=== PATIENT | female | born 1940 | race Caucasian/White ===

== ENCOUNTER 2022-08-04 14:52 | Emergency (ER) | payer OTHER ==
--- OUTSIDE RECORDS SUMMARY | 2022-08-04 14:54 | XMS REPORT | Continuity of Care Document ---
:1940 Author Organization [facility] t Address [address] [place] [address] Care Team Providers Name Role Phone KRISHNAMURTHY, NA LY Primary Care Physician Unavailable Krishnamurthy, Na L Attending Clinician Unavailable Shahrzad Santoyo Attending Clinician Unavailable RADIOLOGY Attending Clinician Unavailable Radiology Attending Clinician Unavailable Doctor Unassigned, [place] Attending Clinician Unavailable Aftab Becerril Attending Clinician Unavailable RAGHU NA LY Admitting Clinician Unavailable Referred, Self Admitting Clinician Unavailable Payers Payer Name Policy Type Policy Number Effective Date Expiration Date Nusrat le [facility] [id number] 2021 00:00:00 SPRING Problems This patient has no known problems. Allergies, Adverse Reactions, Alerts Allergy Allergy Status Severity Reaction(s) Onset Inactive Treating Comm ents Source Name Type Date Date Clinician NO KNOWN Drug Active Univers ALLERGIE Class ity of [facility] Social History Social Habit Start Date Stop Date Quantity Comments Source Exposure to 2021-12-30 2022-01-09 Not sure [facility] SARS-CoV-2 (event) 00:00:00 10:30:00 Medica l Branch Sex Assigned At [birth year] [facility] 00:00:00 00:00:00 Medical Branch Smoking Status Start Date Stop Date Source Unknown if ever smoked [facility] Medical Branch Medications This patient has no known medications. Procedures Procedure Date / Time Performed Performing Clinician Sourc e DEXA AXIAL (HIP AND 2022-01-09 15:45:00 Requisition, Paper [facility] SPINE) Medical Branch CONSENT/REFUSAL FOR 2022-01-09 15:30:07 Doctor Unassigned, No [facility] DIAGNOSIS AND Name Medical Branch TREATMENT ASSIGNMENT OF BENEFITS 2022-01-09 15:29:49 Doctor Unassigned, No [facility] Name Medical Branch Encounters Start End Encounter Admission Attending Care Care Encounter Source Date/Time Date/Time Type Type Clinicians Facility Department ID 2022-05-28 Outpatient Krishnamurthy, Na STLMLC STLMLC [id number] 2 Common 16:35:00 [id number] [facility] 2022-03-01 Outpatient Krishnamurthy, Na STLMLC STLMLC [id number] 2 Common 10:22:01 [facility] 2021-10-12 Outpatient Krishnamurthy, Na STLMLC STLMLC [id number] 2 Common 07:17:00 [id number] [facility] 2021-08-22 Outpatient Krishnamurthy, Na STLMLC STLMLC [id number] 2 Common 14:19:25 [id number] [facility] 2021-08-22 Outpatient Krishnamurthy, Na STLMLC STLMLC [id number] 2 Common 14:12:46 [id number] [facility] 2021-08-22 Outpatient Krishnamurthy, Na STLMLC STLMLC [id number] 2 Common 14:07:36 [id number] [facility] 2021-08-22 Outpatient STLMLC STLMLC [id number] Common 12:44:18 [id number] [facility] 2021-08-22 Outpatient STLMLC STLMLC [id number] Common 12:36:50 [id number] [facility] 2021-08-22 Outpatient Millender, STLMLC STLMLC [id number] Common 11:28:48 Shahrzad 17455 [facility] 2021-08-22 Outpatient Millender, STLMLC STLMLC [id number] Common 11:13:42 Shahrzad [id number] [facility] 2022-01-09 2022-01-09 Outpatient R RADIOLOGY [facility] [id number] Univers 10:31:43 23:59:00 ity of [facility] 2022-01-09 2022-01-09 Hospital Radiology [facility] [id number] Univers 10:10:00 23:59:00 Encounter [place] [id number] ity of [place] [id number] [facility] [id number] [facility] muna 800 Branch 2022-01-09 2022-01-09 Orders Doctor REBECA [id number] Univers 00:00:00 00:00:00 Only Unassigned, DEBBIE [id number] ity of [place] [facility] [id number] [place] [id number] [facility] muna 009 Branch 2021-07-13 2021-07-13 Outpatient KILO Velásquez [facility] [id number] [facility] 09:51:00 09:51:00 Aftab 79 [facility] Results This patient has no known results.
[2022-08-04 15:29] LABS: Absolute Lymphocytes (CBC) 1.2 K/uL (0.7-4.9); MCV 90.7 fL (80-100); MPV 7.9 fL (7.6-11.3); RBC Red Blood Cell Count 4.52 M/uL (3.86-4.86)
[2022-08-04 17:06] LABS: Potassium 3.9 mmol/L (3.5-5.1)
--- NOTE | 2022-08-04 17:11 | RAD REPORT ---
EXAM DESCRIPTION: CT - Soft Tissue Neck W/Contr CLINICAL HISTORY: left sided swelling Neck pain and swelling COMPARISON: No comparisonsNo comparisons TECHNIQUE All CT scans are performed using dose optimization technique as appropriate and may includ e automated exposure control or mA/KV adjustment according to patient size. FINDINGS: There is significant enlargement of the left parotid gland which appears edematous as well as hypervascular. This likely indicates significant left parotid gland inflammation. There is surrounding inflammatory subcutaneous fat stranding along the left inferior face with mild t hickening of the left platysmas muscle. The inflammation extends to the left submandibular and submen trini location. A few mildly prominent left-sided neck lymph nodes are present. IMPRESSION: Moderately severe left-sided parotitis is suspected.
[2022-08-04] MEDS ORDERED: CEFTRIAXONE 1000 MG/VIAL ONE (17:20)
--- NOTE | 2022-08-04 17:41 | ER ---
Nurse's Notes [facility] Name: Effie Myles Age: 81 yrs Sex: Female : 1940 Arrival Date: 08/04/2022 Time: 14:55 Bed 5 Private MD: Diagnosis: Acute parotitis Presentation: 08/04 15:02 Chief complaint: Left sided facial swelling since this morning. Coronavirus screen: At hb this time, the client does not indicate any symptoms associated with coronavirus-19. Ebola Screen: No symptoms or risks identified at this time. Initial Sepsis Screen: Does the patient meet any 2 criteria? No. Patient's initial sepsis screen is negative. Does the patient have a suspected source of infection? No. Patient's initial sepsis screen is negative. Risk Assessment: Do you want to hurt yourself or someone else? Patient reports no desire to harm self or others. Onset of symptoms was August 04, 2022. 15:02 Method Of Arrival: Ambulatory hb 15:02 Acuity: [place] 3 hb Historical: - Allergies: 15:03 No Known Drug Allergies; hb - Immunization history:: Adult Immunizations up to date. - Social history:: Smoking status: Patient denies any tobacco usage or history of. Screenin:08 [facility] ED Fall Risk Assessment (Adult) History of falling in the last 3 months, kc6 including since admission No falls in past 3 months (0 pts) Confusion or Disorientation No (0 pts) Intoxicated or Sedated No (0 pts) Impaired Gait No (0 pts) Mobility Assist Device Used No (0 pt) Altered Elimination No (0 pt) Score/Fall Risk Level 0 - 2 = Low Risk Oriented to surroundings, Maintained a safe environment, Educated pt \T\ family on fall prevention, incl call for assistance when getting out of bed, Assessed \T\ reinforced patient's understanding of fall precautions, Hourly rounding (assess needs \T\ fall precautionary measures) done. Abuse screen: Denies threats or abuse. Denies injuries from another. Nutritional screening: No deficits noted. Tuberculosis screening: No symptoms or risk factors identified. Assessment: 15:07 General: Appears in no apparent distress. comfortable, Behavior is calm, cooperative, kc6 appropriate for age. Pain: Denies pain. Neuro: Brand Agitation-Sedation Scale (RASS): 0 - Alert and Calm Level of Consciousness is awake, alert, obeys commands, Oriented to person, place, time, situation, Appropriate for age. Cardiovascular: Heart tones S1 S2 present Capillary refill < 3 seconds. Respiratory: Airway is patent Trachea midline Respiratory effort is even, unlabored, Respiratory pattern is regular, symmetrical, Breath sounds are clear bilaterally. Denies shortness of breath. GI: No signs and/or symptoms were reported involving the gastrointestinal system. : No signs and/or symptoms were reported regarding the genitourinary system. EENT: No signs and/or symptoms were reported regarding the EENT system. Derm: Skin is intact, Skin is pink, warm \T\ dry. Reports facial swelling to the left side. Musculoskeletal: No signs and/or symptoms reported regarding the musculoskeletal system. Circulation, motion, and sensation intact. Capillary refill < 3 seconds, Range of motion: intact in all extremities. 16:07 Reassessment: Patient appears in no apparent distress at this time. No changes from kc6 previously documented assessment. Patient and/or family updated on plan of care and expected duration. Pain level reassessed. Patient is alert, oriented x 3, equal unlabored respirations, skin warm/dry/pink. Patient denies pain at this time. 17:07 Reassessment: Patient appears in no apparent distress at this time. No changes from kc6 previously documented assessment. Patient and/or family updated on plan of care and expected duration. Pain level reassessed. Patient is alert, oriented x 3, equal unlabored respirations, skin warm/dry/pink. Patient denies pain at this time. Vital Signs: 15:02 BP 203 / 107; Pulse 90; Resp 16; Temp 97.7; Pulse Ox 98% on R/A; Weight 58.97 kg; hb Height 5 ft. 2 in. (157.48 cm); Pain 0/10; 15:21 BP 178 / 92; Pulse 82; Pulse Ox 99% on R/A; mb9 16:21 BP 173 / 101; Pulse 75; Resp 11 S; Pulse Ox 99% on R/A; Pain 0/10; kc6 17:13 BP 180 / 97; Pulse 82; Resp 12 S; Pulse Ox 100% on R/A; Pain 0/10; kc6 15:02 Body Mass Index 23.78 (58.97 kg, 157.48 cm) hb ED Course: 14:55 Patient arrived in ED. as 14:56 Allan Martinez PA is PHCP. [facility] 14:56 Ant Lr MD is Attending Physician. [facility] 14:58 Teagan Holt, RN is Primary Nurse. mb9 15:01 Franchesca Rowe, RN is Primary Nurse. kc6 15:03 Triage completed. hb 15:03 Arm band placed on. hb 15:09 Patient has correct armband on for positive identification. Bed in low position. Call kc6 light in reach. Side rails up X 1. Adult w/ patient. 15:20 BMP Sent. kc6 15:20 CBC with Diff Sent. kc6 15:20 Inserted saline lock: 20 gauge in right antecubital area, using aseptic technique. kc6 Blood collected. 17:06 Soft Tissue Neck W/Contr In Process Unspecified. EDMS 17:40 Maria Eugenia Miller MD is Referral Physician. [facility] 17:49 No provider procedures requiring assistance completed. IV discontinued, intact, kc6 bleeding controlled, No redness/swelling at site. Pressure dressing applied. Administered Medications: 17:25 Drug: Rocephin (cefTRIAXone) 1 grams Route: IV; Rate: calculated rate; Site: right kc6 antecubital; Medication: 17:49 VIS not applicable for this client. kc6 Outcome: 17:40 Discharge ordered by . m 17:49 Discharged to home ambulatory, with significant other. kc6 17:49 Condition: stable 17:49 Discharge instructions given to patient, Instructed on discharge instructions, follow up and referral plans. medication usage, Demonstrated understanding of instructions, follow-up care, medications, Prescriptions given X 1. 17:49 Patient left the ED. kc6 Signatures: Dispatcher [employer] EDMS Allan Martinez PA PA jmm Martinez, Amelia as Baxter, Heather, RN RN Franchesca Rowe, TERRENCE RN kc6 Teagan Holt, TERRENCE RN mb9 Corrections: (The following items were deleted from the chart) 17:14 17:13 Pulse 82bpm; Resp 12bpm; Spontaneous; Pulse Ox 100% RA; Pain 0/10; kc6 kc6
--- NOTE | 2022-08-04 17:41 | EDPHYS ---
Physician Documentation [facility] Name: Effie Myles Age: 81 yrs Sex: Female : 1940 Arrival Date: 08/04/2022 Time: 14:55 Bed 5 Private MD: ED Physician Ant Lr HPI: 08/04 15:09 This 81 yrs old Female presents to ER via Ambulatory with complaints of Facial Swelling.[facility] 15:09 Is a 81-year-old female with history of hypertension that presents to the emergency [facility] department with complaints of left-sided facial neck swelling. Patient states she woke to the swelling. Denies any dental pain. Denies fever. Denies shortness of breath. Pain will radiate into her left ear. Denies any recent injury. Historical: - Allergies: 15:03 No Known Drug Allergies; hb - Immunization history:: Adult Immunizations up to date. - Social history:: Smoking status: Patient denies any tobacco usage or history of. ROS: 15:09 Constitutional: Negative for fever, chills, and weight loss, Cardiovascular: Negative [facility] for chest pain, palpitations, and edema, Respiratory: Negative for shortness of breath, cough, wheezing, and pleuritic chest pain. 15:09 All other systems are negative. Exam: 15:09 Constitutional: This is a well developed, well nourished patient who is awake, alert, jmm and in no acute distress. Head/Face: atraumatic. Eyes: EOMI, no conjunctival erythema appreciated ENT: Moist Mucus Membranes 15:09 Chest/axilla: Normal chest wall appearance and motion. Cardiovascular: Regular rate and rhythm. No edema appreciated Respiratory: Normal respirations, no respiratory distress appreciated Abdomen/GI: Non distended Back: Normal ROM Skin: General appearance color normal MS/ Extremity: Moves all extremities, no obvious deformities appreciated, no edema noted to the lower extremities Neuro: Awake and alert Psych: Behavior is normal, Mood is normal, Patient is cooperative and pleasant 15:09 Neck: Swelling appreciated to the left parotid region, mildly tender to palpation. Vital Signs: 15:02 BP 203 / 107; Pulse 90; Resp 16; Temp 97.7; Pulse Ox 98% on R/A; Weight 58.97 kg; hb Height 5 ft. 2 in. (157.48 cm); Pain 0/10; 15:21 BP 178 / 92; Pulse 82; Pulse Ox 99% on R/A; mb9 16:21 BP 173 / 101; Pulse 75; Resp 11 S; Pulse Ox 99% on R/A; Pain 0/10; kc6 17:13 BP 180 / 97; Pulse 82; Resp 12 S; Pulse Ox 100% on R/A; Pain 0/10; kc6 15:02 Body Mass Index 23.78 (58.97 kg, 157.48 cm) hb MDM: 15:09 Patient medically screened. [facility] 17:39 Data reviewed: vital signs, nurses notes. Counseling: I had a detailed discussion with [facility] the patient and/or guardian regarding: the historical points, exam findings, and any diagnostic results supporting the discharge/admit diagnosis, the need for outpatient follow up, to return to the emergency department if symptoms worsen or persist or if there are any questions or concerns that arise at home. 17:39 ED course: CT revealed acute parotitis. IV antibiotics given. Patient will be [facility] prescribed oral antibiotics and advised follow with ENT for further evaluation. Patient otherwise given strict return precautions. Patient understood agrees plan of care.. 08/04 15:10 Order name: CBC with Diff; Complete Time: 16:00 [facility] 08/04 15:10 Order name: BMP; Complete Time: 17:10 [facility] 08/04 15:10 Order name: Saline Lock; Complete Time: 15:20 [facility] 08/04 15:10 Order name: Soft Tissue Neck W/Contr CT [facility] 08/04 15:14 Order name: Soft Tissue Neck W/Contr; Complete Time: 17:15 EDMS Administered Medications: 17:25 Drug: Rocephin (cefTRIAXone) 1 grams Route: IV; Rate: calculated rate; Site: right kc6 antecubital; Disposition: 17:51 Co-signature as Attending Physician, Ant Lr MD. rn Disposition Summary: 08/04/22 17:40 Discharge Ordered Location: Home [facility] Condition: Stable [facility] Diagnosis - Acute parotitis [facility] Followup: [facility] - With: Maria Eugenia Miller MD - When: 2 - 3 days - Reason: Recheck today's complaints, Continuance of care, Re-evaluation by your physician Discharge Instructions: - Discharge Summary Sheet [facility] - Parotitis [facility] Forms: - Medication Reconciliation Form [facility] - Thank You Letter jmm - Antibiotic Education [facility] - Prescription Opioid Use [facility] Prescriptions: - Augmentin 875-125 mg Oral Tablet - take 1 tablet by ORAL route every 12 hours for 10 days; 20 tablet; Refills: 0, jmm Product Selection Permitted Signatures: Dispatcher [employer] Allan Lopez PA PA jmm Nieto, Roman, MD MD rn Baxter, Heather, RN RN hb Campbell, Kaitlyn, RN RN kc6
[2022-08-04 17:58] VITALS: TEMP 97.7
[2022-08-04 18:15] VITALS: BP 180/97; O2SAT 100
== END 2022-08-04 17:49 | disposition home or self-care (01) ==
LOC: ER 14:52
DX: K11.21 Acute sialoadenitis (principal); I10 Essential (primary) hypertension
CPT/HCPCS: 85025; 80048; 36415; 82565; 70491; 96374; 99284; Q9967

== ENCOUNTER 2022-09-20 13:22 | Emergency (ER) | payer OTHER ==
--- OUTSIDE RECORDS SUMMARY | 2022-09-20 13:35 | XMS REPORT | Continuity of Care Document ---
:1940 Author Organization [facility] t Address [address] [place] [address] Care Team Providers Name Role Phone VALERY KRISHNAMURTHY Primary Care Physician Unavailable Keara Montalvo Attending Clinician Unavailable Valery Krishnamurthy Attending Clinician Unavailable Shahrzad Santoyo Attending Clinician Unavailable RADIOLOGY Attending Clinician Unavailable Radiology Attending Clinician Unavailable Doctor Unassigned, [place] Attending Clinician Unavailable Aftab Becerril Attending Clinician Unavailable VALERY KRISHNAMURTHY Admitting Clinician Unavailable Referred, Self Admitting Clinician Unavailable Payers Payer Name Policy Type Policy Number Effective Date Expiration Date uNsrat le [employer] [id number] 2021 00:00:00 SPRING Problems This patient has no known problems. Allergies, Adverse Reactions, Alerts Allergy Allergy Status Severity Reaction(s) Onset Inactive Treating Comm ents Source Name Type Date Date Clinician NO KNOWN Drug Active Univers ALLERGIE Class ity of [facility] Social History Social Habit Start Date Stop Date Quantity Comments Source Exposure to 2021-12-30 2022-01-09 Not sure [facility] SARS-CoV-2 (event) 00:00:00 10:30:00 Medica l Sel[place] Sex Assigned At [birth year] [facility] 00:00:00 00:00:00 Medical Branch Smoking Status Start Date Stop Date Source Unknown if ever smoked [facility] Medications This patient has no known medications. Procedures Procedure Date / Time Performed Performing Clinician Sour e DEXA AXIAL (HIP AND 2022-01-09 15:45:00 Requisition, Paper [facility] SPINE) Medical Branch CONSENT/REFUSAL FOR 2022-01-09 15:30:07 Doctor Unassigned, No [facility] DIAGNOSIS AND Name Medical Branch TREATMENT ASSIGNMENT OF BENEFITS 2022-01-09 15:29:49 Doctor Unassigned, No [facility] Medical Branch Encounters Start End Encounter Admission Attending Care Care Encounter Source Date/Time Date/Time Type Type Clinicians Facility Department ID 2022-08-13 Outpatient Montalvo, STLMLC STLMLC [id number] Common 14:53:00 Keara [id number] [facility] 2022-05-28 Outpatient Krishnamurthy, Na STLMLC STLMLC [id number] 2 Common 16:35:00 [facility] 2022-03-01 Outpatient Krishnamurthy, Na STLMLC STLMLC [id number] 2 Common 10:22:01 [facility] 2021-10-12 Outpatient Krishnamurthy, Na STLMLC STLMLC [id number] 2 Common 07:17:00 [id number] [facility] 2021-08-22 Outpatient Krishnamurthy, Na STLMLC STLMLC [id number] 2 Common 14:19:25 [id number] [facility] 2021-08-22 Outpatient Krishnamurthy, Na STLMLC STLMLC [id number] 2 Common 14:12:46 [id number] [facility] 2021-08-22 Outpatient Krishnamurthy, Na STLMLC STLMLC [id number] 2 Common 14:07:36 [id number] [facility] 2021-08-22 Outpatient STLMLC STLMLC [id number] Common 12:44:18 [id number] [facility] 2021-08-22 Outpatient STLMLC STLMLC [id number] Common 12:36:50 [id number] [facility] 2021-08-22 Outpatient Millender, STLMLC STLMLC [id number] Common 11:28:48 Shahrzad [id number] [facility] 2021-08-22 Outpatient Millender, STSUSHIL STLMLC [id number] Common 11:13:42 Shahrzad [id number] [facility] 2022-01-09 2022-01-09 Outpatient R RADIOLOGY [facility] [id number] Univers 10:31:43 23:59:00 ity of [facility] 2022-01-09 2022-01-09 Hospital Radiology [facility] [id number] Univers 10:10:00 23:59:00 Encounter [place] [id number] ity of [place] [id number] [facility] [id number] [facility] [address] Branch 2022-01-09 2022-01-09 Orders Doctor REBECA [id number] 00:00:00 00:00:00 Only Unassigned, DEBBIE [id number] ity of [place] [facility] [id number] [place] [id number] [facility] 009 Branch 2021-07-13 2021-07-13 Outpatient JUAN Velásquez OUTD [id number] [facility] 09:51:00 09:51:00 Aftab 79 [facility] Results This patient has no known results.
--- NOTE | 2022-09-20 14:40 | RAD REPORT ---
EXAM DESCRIPTION: CT - Head Brain Wo Cont - 09/20/2022 2:11 pm CLINICAL HISTORY: facial pain and fever COMPARISON: CT CHEST ABD PELVIS W CONTRAST dated 03/06/2011 TECHNIQUE: Noncontrast head CT images ad were obtained without IV contrast. Multiplanar reformats we re generated and reviewed. All CT scans are performed using dose optimization technique as appropriate and may include automated exposure control or mA/KV adjustment according to patient size. FINDINGS: No intracranial hemorrhage, mass, or edema. Midline structures are unremarkable. Normal ventricular caliber for age. Mild diffuse parenchymal volume loss is noted. Zeng-white matter differentiation is preserved, without evidence of acute infarct. No abnormal extra- axial fluid collections. Mild periventricular and deep white matter hypodensities, nonspecific, may s uggest chronic small vessel ischemic changes. Focus of near CSF density in the right subinsular regio n could relate to a small remote infarct or a prominent perivascular space. Mastoid air cells and visualized portions of the paranasal sinuses are clear. No acute bony findings. IMPRESSION: No evidence of an acute intracranial process. Right subinsular focus of hypoattenuation, could relate to a small infarct, probably chronic, or a pr ominent perivascular space. Other nonspecific mild deep white matter hypoattenuation, suggestive of c hronic small vessel ischemic changes.
--- NOTE | 2022-09-20 15:15 | RAD REPORT ---
EXAM DESCRIPTION: CT - CTFBWCON CLINICAL HISTORY: pain and fever COMPARISON: Head Brain Wo Cont dated 09/20/2022; Soft Tissue Neck W/Contr dated 08/04/2022 TECHNIQUE: Axial 2 mm thick images of the face were obtained with sagittal and coronal reconstructio n images, following intravenous administration of iodine contrast. All CT scans are performed using dose optimization technique as appropriate and may include automated exposure control or mA/KV adjustment according to patient size. FINDINGS: No acute facial bone fracture is seen.The mandible is intact. Dental hardware resulting i n streak artifact which limits evaluation. No suspicious masses, adenopathy, or inflammatory changes. No abnormalities with attention to the anton opharyngeal or oropharyngeal mucosal spaces, supraglottic larynx, and vocal folds the parapharyngeal fat is symmetric. No fluid collection or swelling along the retropharyngeal space. The salivary gland s are unremarkable; the inflammatory changes seen along the left parotid gland have resolved since th e prior neck CT. The major vascular structures opacify normally. The visualized infratemporal structures are unremarka ble. The globes and orbital contents are grossly unremarkable.The paranasal sinuses and mastoids are clear . IMPRESSION: No acute abnormality nor inflammatory changes. No suspicious masses or adenopathy.
[2022-09-20 16:59] LABS: SARS-COV-2 RT PCR NEGATIVE (NEGATIVE)
--- NOTE | 2022-09-20 17:01 | EDPHYS ---
Physician Documentation [facility] Name: Effie Myles Age: 81 yrs Sex: Female : 1940 Arrival Date: 09/20/2022 Time: 13:25 Bed 20 Private MD: ED Physician Izaiah Ryder HPI: 09/20 14:20 This 81 yrs old Female presents to ER via Ambulatory with complaints of Fever, Pain. snw 14:20 The patient reports fever, not measured (subjective). Onset: The symptoms/episode snw began/occurred suddenly, this morning. Modifying factors: there are no obvious modifying factors. Associated signs and symptoms: Pertinent positives: swelling, facial pain. Severity of symptoms: At their worst the symptoms were moderate. The patient has experienced a previous episode. Historical: - Allergies: 13:41 No Known Drug Allergies; hb - Immunization history:: Adult Immunizations up to date. - Social history:: Smoking status: Patient denies any tobacco usage or history of. ROS: 14:20 Eyes: Negative for injury, pain, redness, and discharge, Neck: Negative for injury, snw pain, and swelling, Cardiovascular: Negative for chest pain, palpitations, and edema, Respiratory: Negative for shortness of breath, cough, wheezing, and pleuritic chest pain, Abdomen/GI: Negative for abdominal pain, nausea, vomiting, diarrhea, and constipation, Back: Negative for injury and pain, : Negative for injury, bleeding, discharge, and swelling, MS/Extremity: Negative for injury and deformity, Skin: Negative for injury, rash, and discoloration, Neuro: Negative for headache, weakness, numbness, tingling, and seizure, Psych: Negative for depression, anxiety, suicide ideation, homicidal ideation, and hallucinations. 14:20 Constitutional: Positive for fever. 14:20 ENT: Positive for facial pain. Exam: 14:19 Constitutional: This is a well developed, well nourished patient who is awake, alert, snw and in no acute distress. Eyes: Pupils equal round and reactive to light, extra-ocular motions intact. Lids and lashes normal. Conjunctiva and sclera are non-icteric and not injected. Cornea within normal limits. Periorbital areas with no swelling, redness, or edema. ENT: Nares patent. No nasal discharge, no septal abnormalities noted. Tympanic membranes are normal and external auditory canals are clear. Oropharynx with no redness, swelling, or masses, exudates, or evidence of obstruction, uvula midline. Mucous membranes moist. Neck: Trachea midline, no thyromegaly or masses palpated, and no cervical lymphadenopathy. Supple, full range of motion without nuchal rigidity, or vertebral point tenderness. No Meningismus. Chest/axilla: Normal chest wall appearance and motion. Nontender with no deformity. No lesions are appreciated. Cardiovascular: Regular rate and rhythm with a normal S1 and S2. No gallops, murmurs, or rubs. Normal PMI, no JVD. No pulse deficits. Respiratory: Lungs have equal breath sounds bilaterally, clear to auscultation and percussion. No rales, rhonchi or wheezes noted. No increased work of breathing, no retractions or nasal flaring. Abdomen/GI: Soft, non-tender, with normal bowel sounds. No distension or tympany. No guarding or rebound. No evidence of tenderness throughout. Back: No spinal tenderness. No costovertebral tenderness. Full range of motion. Skin: Warm, dry with normal turgor. Normal color with no rashes, no lesions, and no evidence of cellulitis. MS/ Extremity: Pulses equal, no cyanosis. Neurovascular intact. Full, normal range of motion. Neuro: Awake and alert, GCS 15, oriented to person, place, time, and situation. Cranial nerves II-XII grossly intact. Motor strength 5/5 in all extremities. Sensory grossly intact. Cerebellar exam normal. Normal gait. Psych: Awake, alert, with orientation to person, place and time. Behavior, mood, and affect are within normal limits. 14:19 Head/face: Noted is tenderness, that is moderate, of the forehead, chin, right mandible and left mandible. Vital Signs: 13:39 BP 178 / 97; Pulse 98; Resp 16; Temp 99.9(TE); Pulse Ox 96% on R/A; Weight 65.77 kg; hb Height 5 ft. 3 in. (160.02 cm); Pain 4/10; 14:09 BP 173 / 86; Pulse 96; Resp 16; Pulse Ox 97% on R/A; mb9 15:43 BP 168 / 92; Pulse 86; Resp 18; Pulse Ox 99% on R/A; mb9 17:09 BP 160 / 84; Pulse 76; Resp 18; Pulse Ox 100% on R/A; mb9 13:39 Body Mass Index 25.69 (65.77 kg, 160.02 cm) hb MDM: 13:45 Patient medically screened. [facility] 14:21 Data reviewed: vital signs, nurses notes, radiologic studies, CT scan. snw 09/20 15:25 Order name: COVID-19/FLU A+B; Complete Time: 16:59 snw 09/20 13:52 Order name: CT Head Brain wo Cont; Complete Time: 14:41 snw 09/20 14:11 Order name: CT Facial Bones W/ Con \T\ Mpr; Complete Time: 15:24 snw 09/20 14:11 Order name: SL; Complete Time: 14:30 snw Administered Medications: No medications were administered Disposition Summary: 09/20/22 17:00 Discharge Ordered Location: Home snw Condition: Stable snw Diagnosis - Atypical facial pain snw Followup: snw - With: Emergency Department - When: As needed - Reason: Worsening of condition Followup: snw - With: Private Physician - When: 2 - 3 days - Reason: Recheck today's complaints, Continuance of care, Re-evaluation by your physician Discharge Instructions: - Discharge Summary Sheet snw - Pain Without a Known Cause snw - Heat Therapy snw Forms: - Medication Reconciliation Form snw - Thank You Letter snw - Antibiotic Education snw - Prescription Opioid Use snw Prescriptions: - Mobic 7.5 mg Oral Tablet - take 1 tablet by ORAL route once daily take with food; 20 tablet; Refills: 0, snw Product Selection Permitted Signatures: Dispatcher [employer] Izaiah Gordon MD MD cha Waters, Shelly, FORMULA CLERK-C FORMULA CLERK-Csnw Claudia Nugent, RN RN hb
--- NOTE | 2022-09-20 17:01 | ER ---
Nurse's Notes [facility] Name: Effie Myles Age: 81 yrs Sex: Female : 1940 Arrival Date: 09/20/2022 Time: 13:25 Bed 20 Private MD: Diagnosis: Atypical facial pain Presentation: 09/20 13:39 Chief complaint: Fever and facial pain x 3 days. Coronavirus screen: At this time, the hb client does not indicate any symptoms associated with coronavirus-19. Ebola Screen: No symptoms or risks identified at this time. Initial Sepsis Screen: Does the patient meet any 2 criteria? No. Patient's initial sepsis screen is negative. Does the patient have a suspected source of infection? No. Patient's initial sepsis screen is negative. Risk Assessment: Do you want to hurt yourself or someone else? Patient reports no desire to harm self or others. Onset of symptoms was September 17, 2022. 13:39 Method Of Arrival: Ambulatory 13:39 Acuity: [place] 3 hb Historical: - Allergies: 13:41 No Known Drug Allergies; hb - Immunization history:: Adult Immunizations up to date. - Social history:: Smoking status: Patient denies any tobacco usage or history of. Screenin:47 [facility] ED Fall Risk Assessment (Adult) History of falling in the last 3 months, mb9 including since admission No falls in past 3 months (0 pts) Confusion or Disorientation No (0 pts) Intoxicated or Sedated No (0 pts) Impaired Gait No (0 pts) Mobility Assist Device Used No (0 pt) Altered Elimination No (0 pt) Score/Fall Risk Level 0 - 2 = Low Risk Oriented to surroundings, Maintained a safe environment, Educated pt \T\ family on fall prevention, incl call for assistance when getting out of bed. Abuse screen: Denies threats or abuse. Nutritional screening: No deficits noted. Tuberculosis screening: No symptoms or risk factors identified. Assessment: 13:50 General: Appears in no apparent distress. Behavior is calm, cooperative. mb9 13:50 Pain: Pain: Complains of pain in facial and neck Quality of pain is described as mb9 aching, Pain began gradually. 13:50 Neuro: Brand Agitation-Sedation Scale (RASS): 0 - Alert and Calm Level of mb9 Consciousness is awake, alert, obeys commands, Oriented to person, place, time, situation, Appropriate for age. Cardiovascular: Capillary refill < 3 seconds is brisk Patient's skin is warm and dry. Respiratory: Airway is patent Respiratory effort is even, unlabored, Respiratory pattern is regular, agonal Denies shortness of breath. GI: Abdomen is round non-distended, Bowel sounds present X 4 quads. Abd is soft and non tender X 4 quads. EENT: Throat is clear. Derm: Skin is pink, warm \T\ dry. Musculoskeletal: Range of motion: intact in all extremities. 14:07 Reassessment: pt taken to CT via stretcher. mb9 15:43 Reassessment: No changes from previously documented assessment. Patient and/or family mb9 updated on plan of care and expected duration. Pain level reassessed. Patient is alert, oriented x 3, equal unlabored respirations, skin warm/dry/pink. 17:09 Reassessment: No changes from previously documented assessment. Patient and/or family mb9 updated on plan of care and expected duration. Pain level reassessed. Patient is alert, oriented x 3, equal unlabored respirations, skin warm/dry/pink. Patient states symptoms have improved. Vital Signs: 13:39 BP 178 / 97; Pulse 98; Resp 16; Temp 99.9(TE); Pulse Ox 96% on R/A; Weight 65.77 kg; hb Height 5 ft. 3 in. (160.02 cm); Pain 4/10; 14:09 BP 173 / 86; Pulse 96; Resp 16; Pulse Ox 97% on R/A; mb9 15:43 BP 168 / 92; Pulse 86; Resp 18; Pulse Ox 99% on R/A; mb9 17:09 BP 160 / 84; Pulse 76; Resp 18; Pulse Ox 100% on R/A; mb9 13:39 Body Mass Index 25.69 (65.77 kg, 160.02 cm) hb ED Course: 13:25 Patient arrived in ED. rg4 13:26 Cleopatra Kang [facility]-C [facility]. snw 13:26 Izaiah Ryder MD is Attending Physician. snw 13:41 Triage completed. hb 13:41 Arm band placed on. hb 13:45 Teagan Holt RN is Primary Nurse. mb9 13:47 Bed in low position. Call light in reach. Side rails up X 1. Client placed on mb9 continuous cardiac and pulse oximetry monitoring. NIBP monitoring applied. 14:07 No provider procedures requiring assistance completed. mb9 14:12 CT Head Brain wo Cont In Process Unspecified. EDMS 14:15 Inserted saline lock: 22 gauge in right antecubital area, using aseptic technique. mb9 14:29 CT Facial Bones W/ Con \T\ Mpr In Process Unspecified. EDMS 16:07 COVID-19/FLU A+B Sent. mm9 16:07 COVID swab sent to lab. Flu and/or RSV swab sent to lab. mm9 16:08 Pillow given. Pulse ox on. NIBP on. mm9 17:10 IV discontinued, intact, bleeding controlled, No redness/swelling at site. Pressure mb9 dressing applied. Administered Medications: No medications were administered Medication: 13:48 VIS not applicable for this client. mb9 Outcome: 17:00 Discharge ordered by . snw 17:32 Discharged to home ambulatory. mb9 17:32 Condition: stable 17:32 Discharge instructions given to patient, Instructed on discharge instructions, follow up and referral plans. Demonstrated understanding of instructions, follow-up care, medications, Prescriptions given X 1. 17:32 Patient left the ED. mb9 Signatures: Dispatcher [employer] Cleopatra Cruz, MUD ANALYSIS OPERATOR-C MUD ANALYSIS OPERATOR-Csnw Claudia Nugent, RN RN Josefina Mckeon4 Zunilda Schmidt, Teagan Gross RN RN mb9 Corrections: (The following items were deleted from the chart) 14:09 13:50 Pain: mb9 mb9
[2022-09-20 17:47] VITALS: TEMP 99.9
[2022-09-20 18:00] VITALS: BP 160/84; O2SAT 100
== END 2022-09-20 17:32 | disposition home or self-care (01) ==
LOC: ER 13:22
DX: G50.1 Atypical facial pain (principal); R50.9 Fever, unspecified; Z20.822 Contact with and (suspected) exposure to COVID-19
CPT/HCPCS: 0240U; 70450; 70487; 76377; 99284; Q9967

== ENCOUNTER 2022-12-19 10:44 | Day surgery (SDC) | payer OTHER ==
--- NOTE | 2022-12-16 14:09 | RAD REPORT ---
EXAM DESCRIPTION: RAD - Chest Pa And Lat (2 Views) - 12/16/2022 2:03 pm CLINICAL HISTORY: Pre op pending heart cath Chest pain. TECHNIQUE: PA and lateral views of the chest were obtained. FINDINGS: The lungs are hyperexpanded compatible with COPD. The heart is upper limit of normal in si ze. No fracture or aggressive bony process. IMPRESSION: COPD without acute process identified. The USPSTF recommends annual screening for lung cancer with low-dose CT (LDCT) in adults aged 50 to 80 years who have a 20 pack-year smoking history and currently smoke or have quit within the past 15 years.
[2022-12-16 14:14] LABS: Absolute Lymphocytes (CBC) 1.3 K/uL (0.7-4.9); Hematocrit 39.7 % (36.0-45.0); Lymphocytes % 22.6 % (15.3-44.8); MCV 90.4 fL (80-100); MPV 7.8 fL (7.6-11.3); RBC Red Blood Cell Count 4.39 M/uL (3.86-4.86)
[2022-12-16 14:27] LABS: Potassium 3.8 mEq/L (3.5-5.1)
[2022-12-16 14:32] LABS: Protime INR 0.77
--- NOTE | 2022-12-18 05:00 | EKG ---
Test Date: 2022-12-16 Test Time: 13:44:01 Nitroglycerin Neutralizer: TRACY MEASUREMENT RESULTS: Intervals: Rate: 72 MA: 172 QRSD: 72 QT: 420 QTc: 459 [place]: P: 75 MA: 172 QRS: 55 T: 70 INTERPRETIVE STATEMENTS: Normal sinus rhythm Nonspecific ST and T wave abnormality Abnormal ECG Compared to ECG 06/29/2013 09:41:36 ST (T wave) deviation now present T-wave abnormality no longer present Electronically Signed On 12-18-22 04:54:46 CDT by Aftab Becerril
[2022-12-19] MEDS ORDERED: NA CHLORIDE 0.9% 500 ML ONE (11:18)
[2022-12-19 12:06] VITALS: O2SAT 100
[2022-12-19] MEDS ORDERED: FENTANYL CITR 100 MCG/2 ML ONE (12:39)
[2022-12-19] MEDS ORDERED: VERAPAMIL HCL 10 MG/4 ML VIAL IV ONE (12:39)
[2022-12-19] MEDS ORDERED: CLOPIDOGREL 75 MG TABLET ONE (12:39)
[2022-12-19] MEDS ORDERED: HEPARIN 5000 UNIT/ML 1 ML VIAL ONE (12:39)
[2022-12-19] MEDS ORDERED: TICAGRELOR 90 MG TABLET PO ONE (12:40)
[2022-12-19] MEDS ORDERED: HEPARIN 10,000 UNIT/10 ML VIAL IV ONE (12:40)
[2022-12-19] MEDS ORDERED: ASPIRIN 325 MG TAB ONE (12:40)
[2022-12-19] MEDS ORDERED: ATROPINE SULF 1 MG/10 ML SYR IV ONE (12:40)
[2022-12-19] MEDS ORDERED: LIDOCAINE 1% 20 ML MDV ONE (12:52)
[2022-12-19] MEDS ORDERED: HEPA 1000U/500MLS 2,000 UNIT/1,000 ML BAG IV ONE (12:52)
[2022-12-19] MEDS ORDERED: HYDRALAZINE HCL 20 MG/ML VIAL ONE (13:16)
--- NOTE | 2022-12-19 14:20 | OP ---
Date of Procedure: 12/19/2022 Surgeon: AMRIT CONNELL Procedure Performed: Selective coronary angiogram. Indication: Abnormal stress test. Access: Radial artery [place] closed with TR band. Complications: None. Bleeding: Less than 10 mL. Anesthesia: Total sedation time was 30 minutes. Used fentanyl and Versed. Description Of Procedure: After risks, benefits, alternatives were explained, the patient agreed to the procedure and signed informed consent. The patient was brought into the cardiac catheterization laboratory, prepped and draped in the usual sterile fashion. Then, we accessed right radial artery u sing pediatric micropuncture kit, placed a 6[place] Slender sheath and took 5[place] Botkins 4.0 cathet er over J-wire into the aortic root, engaged left main and then right coronary artery, took standard views and removed the catheter and the sheath, and placed TR band with good hemostasis. Findings: 1.Left main; large and normal. 2.LAD; has proximal diffuse 20% to 30% stenosis and diagonal 1 branch has 50% stenosis and then in t he mid segment, there was another long lesion that is 30% and then becomes normal. 3.Left circumflex; large vessel and is normal. 4.RCA; very large, dominant, and normal. Conclusion: Mild nonobstructive coronary artery disease. Recommendation: Medical management. SR/MODL Voice ID: [id number] Report ID: [id number]
[2022-12-19 15:24] VITALS: BP 156/98
== END 2022-12-19 15:30 | disposition home or self-care (01) ==
LOC: CCL 10:44
PROVIDERS: ATTEND Internal Medicine
DX: I25.10 Atherosclerotic heart disease of native coronary artery without angina pectoris (principal); I34.0 Nonrheumatic mitral (valve) insufficiency; I10 Essential (primary) hypertension; R94.31 Abnormal electrocardiogram [ECG] [EKG]; E78.2 Mixed hyperlipidemia
CPT/HCPCS: 93005; 85025; 80048; 36415; 85610; 85730; 71046; 93454; 76937; C1893; Q9966; J1644; J0360; J2001; J3010; J7040; J0461